=== PATIENT | female | born 1985 | race Caucasian/White ===

== ENCOUNTER → 2019-11-26 | Outpatient (CLI) | payer OTHER ==
--- NOTE | 2019-11-26 16:02 | KCIC ---
Limited left calf ultrasound dated 11/26/2019. No comparison available. CLINICAL INDICATION: Twisting injury in June 2019 with increasing pain. FINDINGS: Sonographic imaging was performed over the area of pain. No sonographic evidence of mass or fluid collection in the region. No significant popliteal cyst. The greater saphenous vein in the region. To be compressible with no evidence of thrombosis. There is some superficial spider veins in the region. Just deep to the spider veins in the subcutaneous tissue, there is a small echogenic nodular focus that measures about 8 mm in size, slightly hyperechoic to subcutaneous fat. The sonographic appearance of the gastrocnemius muscles in the region is within normal limits. IMPRESSION: 1. No apparent acute sonographic abnormality. 2. Small echogenic nodule within the subcutaneous tissues deep to the area of spider veins, nonspecific. This could represent a small zone of fat necrosis or a small subcutaneous lipoma. Correlate with physical exam findings. Electronically signed by: Vega Lang MD (11/26/2019 3:59 PM) [id number]
== END | disposition home or self-care (01) ==
LOC: KCIC US 13:37
PROVIDERS: ATTEND Internal Medicine
DX: R22.42 Localized swelling, mass and lump, left lower limb (principal)
CPT/HCPCS: 76881